=== PATIENT | male | born 1935 | race Caucasian/White ===

== ENCOUNTER 2017-10-21 13:22 | Outpatient (CLI) | payer MEDICARE, BC ==
--- NOTE | 2017-10-21 14:19 | ULT ---
ULTRASOUND WITH DOPPLER DUPLEX VENOUS LOWER EXTREMITY LEFT CPT: 33964 ICD-10-PCS: B54D HISTORY: Left leg edema. TECHNIQUE: Color flow Doppler, spectral waveform analysis of pulsed Doppler, and zuluaga-scale imaging with jimi jayro and augmentation, were used to evaluate the left common femoral, femoral, popliteal, posterior t ibial, and superficial femoral, veins; and the proximal portions of the profunda femoral and greater saphenous, veins. FINDINGS: There is appropriate compression, augmentation, and flow within the imaged deep vein system of the le ft lower extremity. There is soft tissue edema. IMPRESSION: 1. No DVT. 2. Soft tissue edema. Correlate clinically. POS: [facility]
== END 2017-10-21 13:23 | disposition home or self-care (01) ==
LOC: ULT 13:22
PROVIDERS: ATTEND Internal Medicine
DX: M79.89 Other specified soft tissue disorders (principal); M79.605 Pain in left leg

== ENCOUNTER 2018-08-07 14:10 | Emergency (ER) | payer MEDICARE, BC | END 2018-08-07 20:23 | LOC: ERS 14:10 | DX: Z04.3 Encounter for examination and observation following other accident (principal); K21.9 Gastro-esophageal reflux disease without esophagitis; G30.9 Alzheimer's disease, unspecified; F02.80 Dementia in other diseases classified elsewhere, unspecified severity, without behavioral disturbance, psychotic disturbance, mood disturbance, and anxiety; W01.0XXA Fall on same level from slipping, tripping and stumbling without subsequent striking against object, initial encounter; Y92.129 Unspecified place in nursing home as the place of occurrence of the external cause | CPT/HCPCS: 99283 ==